=== PATIENT | female | born 1935 | race Hispanic/Latino ===

== ENCOUNTER 2017-10-26 14:18 | Emergency (ER) | payer MEDICARE ==
[2017-10-26 14:40] LABS: BASOPHILS % (AUTO) 0.9 % (0.0-5.0); EOSINOPHILS % (AUTO) 0.4 % (0.0-8.0); MEAN CORPUSCULAR HEMOGLOBIN 29.6 pg (27.0-33.0); MONOCYTES % (AUTO) 9.2 % (3.0-13.0); NEUTROPHILS % (AUTO) 69.5 % (40.0-77.0); PLATELET COUNT (AUTO) 225 K/uL (130-400); RED BLOOD CELL COUNT(AUTO) 4.03 MIL/uL (4.00-5.50); RED CELL DISTRIBUTION WIDTH 14.4 % (11.0-15.5)
[2017-10-26 14:48] LABS: CREATININE 1.2 mg/dL (0.5-1.5); POTASSIUM 3.8 mmol/L (3.5-5.1)
[2017-10-26 14:53] LABS: ALBUMIN 3.3 g/dL (3.5-5.0); BILIRUBIN,TOTAL 0.6 mg/dL (0.2-1.0); TOTAL PROTEIN, SERUM 6.9 g/dL (6.0-8.3)
[2017-10-26] MEDS ORDERED: ONDANSETRON HCL 4 MG/2 ML VIAL ONE ×2 (14:58→15:01)
[2017-10-26] MEDS ORDERED: MORPHINE SULFATE 4 MG/1ML SYG ONE (14:58)
== END 2017-10-26 15:21 | disposition home or self-care (01) ==
LOC: EDH 14:18
DX: R19.7 Diarrhea, unspecified (principal); E11.65 Type 2 diabetes mellitus with hyperglycemia; I10 Essential (primary) hypertension
CPT/HCPCS: 36415; 80053; 85025; 96374; 96375; 99284; J2270; J2405 ×2

== ENCOUNTER 2017-11-07 19:10 | Emergency (ER) | payer MEDICARE ==
[2017-11-07 20:21] LABS: BASOPHILS % (AUTO) 0.8 % (0.0-5.0); EOSINOPHILS % (AUTO) 0.2 % (0.0-8.0); HEMATOCRIT 34.5 % (36-48); LYMPHOCYTES % (AUTO) 13.1 % (21.0-51.0); MEAN CORPUSCULAR HEMOGLOBIN 29.1 pg (27.0-33.0); MEAN CORPUSCULAR HGB CONC 33.6 g/dL (32.0-36.0); MEAN CORPUSCULAR VOLUME 86.6 fL (79-99); MONOCYTES % (AUTO) 6.6 % (3.0-13.0); NEUTROPHILS % (AUTO) 79.3 % (40.0-77.0); PLATELET COUNT (AUTO) 260 K/uL (130-400); RED BLOOD CELL COUNT(AUTO) 3.99 MIL/uL (4.00-5.50); RED CELL DISTRIBUTION WIDTH 14.7 % (11.0-15.5); WHITE BLOOD COUNT (AUTO) 10.1 K/uL (4.8-10.8)
[2017-11-07 20:32] LABS: INR 0.95 (0.85-1.15); PARTIAL THROMBOPLASTIN TIME 26.9 SEC (26.3-35.5)
[2017-11-07 20:38] LABS: CREATININE 1.2 mg/dL (0.5-1.5); POTASSIUM 3.6 mmol/L (3.5-5.1)
[2017-11-07 20:43] LABS: ALBUMIN 3.3 g/dL (3.5-5.0); BILIRUBIN,TOTAL 0.5 mg/dL (0.2-1.0); TOTAL PROTEIN, SERUM 6.9 g/dL (6.0-8.3)
[2017-11-07 21:05] LABS: CREATINE KINASE MB 1.4 ng/mL (0.5-3.6)
[2017-11-07] MEDS ORDERED: LIDOCAINE HCL 2% JELLY 5 ML ONE (21:19)
[2017-11-07] MEDS ORDERED: IBUPROFEN 400 MG TABLET ONE (21:19)
== END 2017-11-07 23:15 | disposition home or self-care (01) ==
LOC: EDH 19:10
DX: K64.4 Residual hemorrhoidal skin tags (principal); E11.9 Type 2 diabetes mellitus without complications; I10 Essential (primary) hypertension
CPT/HCPCS: 36415; 71045; 80053; 82270; 82550; 82553; 83690; 84484; 85025; 85610; 85730; 93005

== ENCOUNTER 2018-03-10 22:34 | Emergency (ER) | payer MEDICARE ==
[2018-03-10 23:59] LABS: BASOPHILS % (AUTO) 0.4 % (0.0-5.0); EOSINOPHILS % (AUTO) 0.4 % (0.0-8.0); HEMATOCRIT 37.7 % (36-48); LYMPHOCYTES % (AUTO) 18.5 % (21.0-51.0); MEAN CORPUSCULAR HEMOGLOBIN 29.2 pg (27.0-33.0); MEAN CORPUSCULAR HGB CONC 33.7 g/dL (32.0-36.0); MEAN CORPUSCULAR VOLUME 86.8 fL (79-99); MONOCYTES % (AUTO) 7.7 % (3.0-13.0); PLATELET COUNT (AUTO) 291 K/uL (130-400); RED BLOOD CELL COUNT(AUTO) 4.34 MIL/uL (4.00-5.50); RED CELL DISTRIBUTION WIDTH 14.5 % (11.0-15.5); WHITE BLOOD COUNT (AUTO) 8.7 K/uL (4.8-10.8)
[2018-03-11 00:10] LABS: CREATININE 1.1 mg/dL (0.5-1.5); POTASSIUM 3.6 mmol/L (3.5-5.1)
[2018-03-11 00:14] LABS: ALBUMIN 3.5 g/dL (3.5-5.0); BILIRUBIN,TOTAL 0.5 mg/dL (0.2-1.0); TOTAL PROTEIN, SERUM 7.2 g/dL (6.0-8.3)
[2018-03-11] MEDS ORDERED: BISACODYL 10 MG SUPP.RECT RC ONE (01:20)
[2018-03-11 02:25] LABS: APPEARANCE,URINE Clear (CLEAR); BILIRUBIN,URINE Negative (NEGATIVE); COLOR,URINE Yellow (YELLOW); GLUCOSE, URINE (UA) Negative (NEGATIVE); KETONES,URINE Negative (NEGATIVE); LEUKOCYTE ESTERASE ,URINE Negative (NEGATIVE); NITRATE,URINE Negative (NEGATIVE); OCCULT BLOOD,URINE Negative (NEGATIVE); PH,URINE 7.5 (5.0-8.0); PROTEIN,URINE Negative (NEGATIVE); UROBILINOGEN,URINE 0.2 mg/dL (0.2-1.0)
== END 2018-03-11 04:15 | disposition home or self-care (01) ==
LOC: EDH 22:34
DX: K59.00 Constipation, unspecified (principal); K62.89 Other specified diseases of anus and rectum
CPT/HCPCS: 36415; 74176; 80053; 81003; 82150; 82270; 83690; 85025; 93005

== ENCOUNTER 2018-03-18 10:18 | Emergency (ER) | payer MEDICARE ==
[2018-03-18] MEDS ORDERED: ACETAMINOPHEN 325 MG TAB ONE (10:45)
== END 2018-03-18 11:47 | disposition home or self-care (01) ==
LOC: EDH 10:18
DX: S30.0XXA Contusion of lower back and pelvis, initial encounter (principal); E11.9 Type 2 diabetes mellitus without complications; E78.5 Hyperlipidemia, unspecified; W18.39XA Other fall on same level, initial encounter; Y93.89 Activity, other specified; Y92.89 Other specified places as the place of occurrence of the external cause; Y99.8 Other external cause status
CPT/HCPCS: 70450; 71045; 72192

== ENCOUNTER 2018-07-09 15:21 | Emergency (ER) | payer MEDICARE ==
[2018-07-09 16:02] LABS: BASOPHILS % (AUTO) 0.8 % (0.0-5.0); EOSINOPHILS % (AUTO) 1.1 % (0.0-8.0); HEMATOCRIT 34.7 % (36-48); LYMPHOCYTES % (AUTO) 17.5 % (21.0-51.0); MEAN CORPUSCULAR HEMOGLOBIN 29.2 pg (27.0-33.0); MEAN CORPUSCULAR HGB CONC 33.5 g/dL (32.0-36.0); MEAN CORPUSCULAR VOLUME 87.3 fL (79-99); MONOCYTES % (AUTO) 8.7 % (3.0-13.0); NEUTROPHILS % (AUTO) 71.9 % (40.0-77.0); PLATELET COUNT (AUTO) 214 K/uL (130-400); RED BLOOD CELL COUNT(AUTO) 3.98 MIL/uL (4.00-5.50); RED CELL DISTRIBUTION WIDTH 15.3 % (11.0-15.5); WHITE BLOOD COUNT (AUTO) 9.7 K/uL (4.8-10.8)
[2018-07-09 16:11] LABS: CREATININE 1.4 mg/dL (0.5-1.5); POTASSIUM 4.5 mmol/L (3.5-5.1)
[2018-07-09 16:15] LABS: ALBUMIN 3.2 g/dL (3.5-5.0); BILIRUBIN,TOTAL 0.8 mg/dL (0.2-1.0)
[2018-07-21] MEDS ORDERED: LUBI24CA2 PO (10:24)
[2018-07-21] MEDS ORDERED: LACT10SO9 PO (10:24)
[2018-07-21] MEDS ORDERED: ESOM40CA PO (10:24)
[2018-07-21] MEDS ORDERED: ZOLP10TA6 PO (10:24)
[2018-07-21] MEDS ORDERED: TOLT2CAP PO (10:24)
[2018-07-21] MEDS ORDERED: SERT25TA5 PO (10:24)
[2018-07-21] MEDS ORDERED: BENA40TA67 PO (10:24)
== END 2018-07-09 19:04 | disposition home or self-care (01) ==
LOC: EDH 15:21
DX: K52.9 Noninfective gastroenteritis and colitis, unspecified (principal); E11.9 Type 2 diabetes mellitus without complications; E78.5 Hyperlipidemia, unspecified; I10 Essential (primary) hypertension
CPT/HCPCS: 36415; 74176; 80053; 83690; 84484; 85025; 93005

== ENCOUNTER 2018-09-17 17:34 | Observation (INO) | payer MEDICARE ==
[~2018-09-17] VITALS: Ht 165.1 cm; Wt 84.5 kg
[~2018-09-17 17:34] MED LIST: BENA40TA67 PO; ESOM40CA PO; LACT10SO9 PO; LUBI24CA2 PO; MEMA5TAB PO; SERT25TA5 PO; TOLT2CAP PO; WARF4TAB72 PO; ZOLP10TA6 PO
[2018-09-17] MEDS ORDERED: BISACODYL 10 MG SUPP.RECT RC ONE (19:23)
[2018-09-17] MEDS ORDERED: SODIUM CHLORIDE 0.9% 1000ML 1,000 ML IV SCH (22:04)
[2018-09-17 22:10] VITALS: BP 127/76
[2018-09-17] MEDS ORDERED: MORPHINE SULFATE 2 MG/ML 1ML SYG IV PRN (22:15)
[2018-09-17] MEDS ORDERED: ONDANSETRON HCL 4 MG/2 ML VIAL IV PRN (22:15)
[2018-09-17] MEDS ORDERED: DICYCLOMINE HCL 20 MG TAB PO PRN (22:15)
[2018-09-17] MEDS ORDERED: MAGNESIUM CITRATE 296 ML SOLUTION PO ONE (22:15)
[2018-09-17] MEDS ORDERED: ACETAMINOPHEN 325 MG TAB PO PRN (22:15)
[2018-09-17] MEDS ORDERED: GLYCERIN ADULT SUPP.RECT RC SCH (22:15)
[2018-09-17 22:55] LABS: BASOPHILS % (AUTO) 0.5 % (0.0-5.0); EOSINOPHILS % (AUTO) 1.3 % (0.0-8.0); HEMATOCRIT 35.4 % (36-48); LYMPHOCYTES % (AUTO) 18.9 % (21.0-51.0); MEAN CORPUSCULAR HGB CONC 33.4 g/dL (32.0-36.0); MEAN CORPUSCULAR VOLUME 86.8 fL (79-99); MONOCYTES % (AUTO) 8.3 % (3.0-13.0); PLATELET COUNT (AUTO) 284 K/uL (130-400); RED BLOOD CELL COUNT(AUTO) 4.08 MIL/uL (4.00-5.50); RED CELL DISTRIBUTION WIDTH 15.2 % (11.0-15.5); WHITE BLOOD COUNT (AUTO) 10.2 K/uL (4.8-10.8)
[2018-09-17] MEDS ORDERED: SODIUM CHLORIDE 0.9% 1000ML 1,000 ML IV ONE (23:06)
[2018-09-17 23:17] LABS: CREATININE 1.3 mg/dL (0.5-1.5); CRP QUANTITATIVE 1.1 mg/L (0.00-9.0); POTASSIUM 4.3 mmol/L (3.5-5.1)
[2018-09-17 23:18] LABS: ALBUMIN 3.2 g/dL (3.5-5.0); BILIRUBIN,TOTAL 0.5 mg/dL (0.2-1.0); TOTAL PROTEIN, SERUM 6.7 g/dL (6.0-8.3)
[2018-09-17] MEDS ORDERED: MAGNESIUM CITRATE 296 ML SOLUTION ONE (23:36)
[2018-09-18] VITALS: BP 123/71
[2018-09-18] MEDS ORDERED: MAGNESIUM CITRATE 296 ML SOLUTION ONE (03:53)
[2018-09-18 04:00] VITALS: BP 119/72
[2018-09-18] MEDS ORDERED: LACTULOSE 20 GM/30 ML UDCUP PO PRN (07:15)
[2018-09-18 08:09] VITALS: BP 124/67
[2018-09-18] MEDS ORDERED: ENOXAPARIN SODIUM 30 MG/0.3 ML SQ SCH (09:00)
[2018-09-18] MEDS ORDERED: DETROL PO SCH (09:00)
[2018-09-18] MEDS ORDERED: FAMOTIDINE/PF 20 MG/2 ML VIAL IV SCH (09:00)
[2018-09-18] MEDS ORDERED: SERTRALINE HCL 50 MG TABLET PO SCH (09:00)
[2018-09-18] MEDS ORDERED: BENAZEPRIL HCL 10 MG TABLET PO SCH (09:00)
[2018-09-18] MEDS ORDERED: NYSTATIN 30 GM CREAM.GM. TP SCH (09:00)
[2018-09-18] MEDS ORDERED: FLUCONAZOLE 100 MG TAB PO SCH (09:00)
[2018-09-18] MEDS ORDERED: LACT10SO9 PO (09:26)
[2018-09-18 11:33] VITALS: BP 137/67
[2018-09-18] MEDS ORDERED: MEMANTINE HCL 5 MG TABLET PO SCH (21:00)
[2018-09-18] MEDS ORDERED: WARFARIN SODIUM 2 MG TAB PO SCH (21:00)
[2018-09-18] MEDS ORDERED: ZOLPIDEM TARTRATE 5 MG TAB PO SCH (21:00)
== END 2018-09-18 15:50 | disposition home or self-care (01) ==
LOC: EDH 17:34 → EDHIP 20:50 → 3CH 22:04
PROVIDERS: ADMIT Internal Medicine; ATTEND Internal Medicine
DX: K56.41 Fecal impaction (principal); E11.9 Type 2 diabetes mellitus without complications; I10 Essential (primary) hypertension; E78.5 Hyperlipidemia, unspecified; Z96.659 Presence of unspecified artificial knee joint; Z90.710 Acquired absence of both cervix and uterus; Z80.0 Family history of malignant neoplasm of digestive organs; Z82.0 Family history of epilepsy and other diseases of the nervous system; Z82.3 Family history of stroke; Z82.49 Family history of ischemic heart disease and other diseases of the circulatory system; Z83.3 Family history of diabetes mellitus
CPT/HCPCS: 36415; 71045; 74021; 74176; 80053; 83605; 84484; 85025; 86140; 93005; 96372; 96374; 99284; G0378 ×19; J1650; J3490; J7030

== ENCOUNTER 2019-04-20 22:55 | Emergency (ER) | payer MEDICARE ==
[2019-04-20] MEDS ORDERED: SODIUM CHLORIDE 0.9% 1000ML 1,000 ML IV ONE (23:18)
[2019-04-20 23:24] LABS: HEMATOCRIT 38.3 % (36-48); MEAN CORPUSCULAR HGB CONC 32.5 g/dL (32.0-36.0); MEAN CORPUSCULAR VOLUME 86.2 fL (79-99); PLATELET COUNT (AUTO) 242 K/uL (130-400); RED BLOOD CELL COUNT(AUTO) 4.45 MIL/uL (4.00-5.50); RED CELL DISTRIBUTION WIDTH 16.1 % (11.0-15.5); WHITE BLOOD COUNT (AUTO) 9.6 K/uL (4.8-10.8)
[2019-04-20 23:33] LABS: CREATININE 1.8 mg/dL (0.5-1.5); POTASSIUM 4.2 mmol/L (3.5-5.1)
[2019-04-20 23:37] LABS: ALBUMIN 3.3 g/dL (3.5-5.0); BILIRUBIN,TOTAL 0.4 mg/dL (0.2-1.0); TOTAL PROTEIN, SERUM 6.9 g/dL (6.0-8.3)
[2019-04-20 23:59] LABS: EOSINOPHILS % (AUTO) 2.5 % (0.0-8.0); LYMPHOCYTES % (AUTO) 17.8 % (21.0-51.0); MONOCYTES % (AUTO) 5.4 % (3.0-13.0); NEUTROPHILS % (AUTO) 73.3 % (40.0-77.0)
[2019-04-21] MEDS ORDERED: POLYETHYLENE GLYCOL 3350 17 GM POWD.PACK ONE (00:42)
== END 2019-04-21 01:22 | disposition home or self-care (01) ==
LOC: EDH 22:55
DX: K59.00 Constipation, unspecified (principal); I12.9 Hypertensive chronic kidney disease with stage 1 through stage 4 chronic kidney disease, or unspecified chronic kidney disease; E11.22 Type 2 diabetes mellitus with diabetic chronic kidney disease; N18.9 Chronic kidney disease, unspecified; E78.5 Hyperlipidemia, unspecified; Z90.710 Acquired absence of both cervix and uterus; Z98.890 Other specified postprocedural states
CPT/HCPCS: 36415; 74176; 80053; 83690; 85025; 99285; J7030